=== PATIENT | male | born 1960 | race Caucasian/White ===

== ENCOUNTER 2018-06-03 09:36 | Inpatient (IN) | payer OTHER ==
[2018-06-03] VITALS (11 sets, daily range): BP systolic 172–230; BP diastolic 103–136
[~2018-06-03] VITALS: Ht 182.9 cm; Wt 132.1 kg
[2018-06-03] MEDS ORDERED: SODIUM CHLORIDE FLUSH 10ML SYR IVF ONE (10:00)
[2018-06-03] MEDS ORDERED: ASPIRIN 81 MG TABLET CHEW PO ONE (10:00)
[2018-06-03] MEDS ORDERED: ASPIRIN 81 MG TABLET CHEW ONE (10:00)
[2018-06-03] MEDS ORDERED: LABETALOL 5MG/ML, 20ML IVPush ONE (10:00)
[2018-06-03] MEDS ORDERED: LABETALOL 5MG/ML, 20ML ONE (10:38)
[2018-06-03 10:42] LABS: BASOPHILS # (AUTO) 0.03 x10^3/uL (0-0.1); BASOPHILS % (AUTO) 1 % (0-1); EOSINOPHILS # (AUTO) 0.15 x10^3/uL (0-0.4); EOSINOPHILS % (AUTO) 3 % (1-7); LYMPHOCYTES # (AUTO) 1.05 x10^3/uL (1-3.4); LYMPHOCYTES % (AUTO) 18 % (22-44); MD NO; MEAN CORPUSCULAR HEMOGLOBIN 33.4 pg (27.5-34.5); MEAN CORPUSCULAR HGB CONC 34.1 g/dL (33.2-36.2); MEAN CORPUSCULAR VOLUME 98.1 fL (81-97); MEAN PLATELET VOLUME 8.1 fL (7.4-10.4); MONOCYTES # (AUTO) 0.56 x10^3/uL (0.2-0.8); MONOCYTES % (AUTO) 10 % (2-9); NEUTROPHILS # (AUTO) 4.06 x10^3/uL (1.8-6.8); NEUTROPHILS % (AUTO) 70 % (42-75); PLATELET COUNT 157 x10^3/uL (130-400); RED BLOOD COUNT 5.67 x10^6/uL (4.38-5.82); RED CELL DISTRIBUTION WIDTH 14.5 % (9.4-14.8)
[2018-06-03 10:51] LABS: ALBUMIN 3.9 g/dL (3.4-5.0); ANION GAP 8 mmol/L (5-15); CALCIUM 8.9 mg/dL (8.5-10.1); CHLORIDE 108 mmol/L (98-107); CREATININE 0.89 mg/dL (0.7-1.3)
[2018-06-03 10:55] LABS: TROPONIN I 0.035 ng/mL (0.000-0.045)
[2018-06-03] MEDS ORDERED: OMNIPAQUE 350 MG/ML, 150 ML BOTTLE ONE (12:20)
[2018-06-03] MEDS ORDERED: FLUT9.9S INH (13:26)
[2018-06-03] MEDS ORDERED: CLIN300C8 PO (13:26)
[2018-06-03] MEDS ORDERED: IRBE150T25 PO (13:27)
[2018-06-03] MEDS ORDERED: ENALAPRILAT 1.25 MG/ML, 2ML IV ONE (13:30)
[2018-06-03] MEDS ORDERED: ENALAPRILAT 1.25 MG/ML, 2ML ONE (13:31)
[2018-06-03] MEDS ORDERED: LABETALOL 5MG/ML, 20ML IVPush PRN (14:30)
[2018-06-03 14:43] LABS: INTERNATIONAL NORMALIZED RATIO 1.13 (0.93-1.1); PROTHROMBIN TIME 11.7 Seconds (9.6-11.5)
[2018-06-03 14:46] LABS: ALANINE AMINOTRANSFERASE 203 U/L (12-78); ALBUMIN 3.6 g/dL (3.4-5.0); ANION GAP 9 mmol/L (5-15); CALCIUM 8.6 mg/dL (8.5-10.1); CHLORIDE 107 mmol/L (98-107); CREATININE 0.84 mg/dL (0.7-1.3)
[2018-06-03 14:51] LABS: ALKALINE PHOSPHATASE 92 U/L (45-117); BILIRUBIN,TOTAL 0.9 mg/dL (0.2-1.0); TROPONIN I 0.039 ng/mL (0.000-0.045)
[2018-06-03 15:10] LABS: FREE T4 (FREE THYROXINE) 1.22 ng/dL (0.76-1.46); THYROID STIMULATING HORMONE 1.29 mIU/L (0.358-3.740)
[2018-06-03 15:23] LABS: HEMOGLOBIN A1C 7.2 % (4.2-6.3)
[2018-06-03] MEDS: CLINDAMYCIN 300 MG CAPSULE PO SCH ×2 (15:47→20:39)
[2018-06-03] MEDS: HEPARIN 5,000 UNITS/ML, 1ML SQ SCH ×2 (15:47→23:33)
[2018-06-03] MEDS: ENALAPRILAT 1.25 MG/ML, 2ML IVPush PRN ×2 (15:47→20:41)
[2018-06-03] MEDS: FUROSEMIDE 40 MG/4 ML IV SCH (16:49)
[2018-06-03 17:01] LABS: AMPHETAMINE SCREEN, URINE Negative (Negative); BARBITURATE SCREEN, URINE Negative (Negative); BENZODIAZEPINE SCREEN, URINE Negative (Negative); CANNABINOID SCREEN, URINE Negative (Negative)
[2018-06-03 17:12] LABS: COCAINE SCREEN, URINE Negative (Negative); METHADONE SCREEN, URINE Negative (Negative); OPIATE SCREEN, URINE Negative (Negative)
[2018-06-03] MEDS ORDERED: IRBESARTAN 150 MG TABLET PO ONE (17:30)
[2018-06-03] MEDS: LABETALOL 5MG/ML, 20ML IVPush PRN ×2 (18:43→23:33)
[2018-06-03] MEDS ORDERED: hydrALAzine 20 MG/ML, 1ML ONE (18:56)
[2018-06-03] MEDS: hydrALAzine 20 MG/ML, 1ML IV PRN (19:01)
[2018-06-03] MEDS: ATORVASTATIN 40 MG TABLET PO SCH (20:39)
[2018-06-03 21:43] LABS: TROPONIN I 0.033 ng/mL (0.000-0.045)
[2018-06-04] VITALS (9 sets, daily range): BP systolic 136–187; BP diastolic 77–117
[2018-06-04] MEDS: hydrALAzine 20 MG/ML, 1ML IV PRN ×2 (02:40→13:39)
[2018-06-04] MEDS: ENALAPRILAT 1.25 MG/ML, 2ML IVPush PRN (03:42)
[2018-06-04] MEDS: ACETAMINOPHEN 325 MG TABLET PO PRN ×4 (03:42→20:58)
[2018-06-04 05:55] LABS: BASOPHILS # (AUTO) 0.03 x10^3/uL (0-0.1); BASOPHILS % (AUTO) 1 % (0-1); EOSINOPHILS % (AUTO) 2 % (1-7); LYMPHOCYTES # (AUTO) 0.93 x10^3/uL (1-3.4); LYMPHOCYTES % (AUTO) 17 % (22-44); MD NO; MEAN CORPUSCULAR HEMOGLOBIN 34.2 pg (27.5-34.5); MEAN CORPUSCULAR HGB CONC 34.4 g/dL (33.2-36.2); MEAN CORPUSCULAR VOLUME 99.3 fL (81-97); MEAN PLATELET VOLUME 8.2 fL (7.4-10.4); MONOCYTES # (AUTO) 0.54 x10^3/uL (0.2-0.8); MONOCYTES % (AUTO) 10 % (2-9); NEUTROPHILS # (AUTO) 3.95 x10^3/uL (1.8-6.8); NEUTROPHILS % (AUTO) 71 % (42-75); PLATELET COUNT 142 x10^3/uL (130-400); RED CELL DISTRIBUTION WIDTH 14.5 % (9.4-14.8)
[2018-06-04 06:08] LABS: ALBUMIN 3.4 g/dL (3.4-5.0); ANION GAP 6 mmol/L (5-15); CALCIUM 9.1 mg/dL (8.5-10.1); CHLORIDE 105 mmol/L (98-107)
[2018-06-04 06:10] LABS: ALANINE AMINOTRANSFERASE 177 U/L (12-78); ALKALINE PHOSPHATASE 87 U/L (45-117); BILIRUBIN,TOTAL 0.9 mg/dL (0.2-1.0); CREATININE 0.93 mg/dL (0.7-1.3); TOTAL PROTEIN 7.1 g/dL (6.4-8.2)
[2018-06-04] MEDS: LABETALOL 5MG/ML, 20ML IVPush PRN (06:24)
[2018-06-04] MEDS: INSULIN LISPRO 100 UNITS/ML, PEN SQ-INSULIN SCH ×4 (08:00→20:22)
[2018-06-04] MEDS: AMLODIPINE 5 MG TABLET PO SCH (08:08)
[2018-06-04] MEDS: IRBESARTAN 150 MG TABLET PO SCH (08:08)
[2018-06-04] MEDS: CLINDAMYCIN 300 MG CAPSULE PO SCH ×3 (08:08→20:21)
[2018-06-04] MEDS: HEPARIN 5,000 UNITS/ML, 1ML SQ SCH ×2 (08:09→16:40)
[2018-06-04] MEDS: FUROSEMIDE 40 MG/4 ML IV SCH ×2 (08:09→17:30)
[2018-06-04] MEDS ORDERED: CALCIUM CARBONATE 500 MG TAB.CHEW PO PRN (11:30)
[2018-06-04] MEDS ORDERED: IBUPROFEN 200 MG TABLET PO PRN (13:30)
[2018-06-04] MEDS ORDERED: LORazepam 0.5MG TABLET PO ONE (14:00)
[2018-06-04] MEDS ORDERED: GADOBUTROL 10 MMOL/10 ML PFS ONE (15:50)
[2018-06-04] MEDS: ATORVASTATIN 40 MG TABLET PO SCH (20:21)
[2018-06-05] MEDS: HEPARIN 5,000 UNITS/ML, 1ML SQ SCH ×4 (00:28→23:56)
[2018-06-05 00:35] VITALS: BP 133/80
[2018-06-05 07:46] VITALS: BP 181/98
[2018-06-05 08:07] VITALS: BP 170/100
[2018-06-05] MEDS: AMLODIPINE 5 MG TABLET PO SCH (08:22)
[2018-06-05] MEDS: CLINDAMYCIN 300 MG CAPSULE PO SCH ×3 (08:22→20:54)
[2018-06-05] MEDS: INSULIN LISPRO 100 UNITS/ML, PEN SQ-INSULIN SCH ×4 (08:23→20:55)
[2018-06-05] MEDS: IRBESARTAN 150 MG TABLET PO SCH (08:23)
[2018-06-05] MEDS: ASPIRIN 81 MG TABLET CHEW PO SCH (08:23)
[2018-06-05] MEDS: HYDROCHLOROTHIAZIDE 25 MG TABLET PO SCH ×2 (08:23→20:54)
[2018-06-05 09:35] VITALS: BP 138/76
[2018-06-05] MEDS ORDERED: OMNIPAQUE 350 MG/ML, 150 ML BOTTLE ONE (09:54)
[2018-06-05 13:27] VITALS: BP 136/76
[2018-06-05 20:14] VITALS: BP 115/69
[2018-06-05] MEDS: ATORVASTATIN 40 MG TABLET PO SCH (20:54)
[2018-06-06 02:30] VITALS: BP 153/79
[2018-06-06 04:57] LABS: BASOPHILS # (AUTO) 0.02 x10^3/uL (0-0.1); BASOPHILS % (AUTO) 0 % (0-1); EOSINOPHILS # (AUTO) 0.06 x10^3/uL (0-0.4); EOSINOPHILS % (AUTO) 1 % (1-7); LYMPHOCYTES # (AUTO) 0.96 x10^3/uL (1-3.4); LYMPHOCYTES % (AUTO) 15 % (22-44); MD NO; MEAN CORPUSCULAR HEMOGLOBIN 33.8 pg (27.5-34.5); MEAN CORPUSCULAR HGB CONC 33.9 g/dL (33.2-36.2); MEAN CORPUSCULAR VOLUME 99.8 fL (81-97); MEAN PLATELET VOLUME 7.9 fL (7.4-10.4); MONOCYTES # (AUTO) 0.68 x10^3/uL (0.2-0.8); MONOCYTES % (AUTO) 10 % (2-9); NEUTROPHILS % (AUTO) 74 % (42-75); PLATELET COUNT 172 x10^3/uL (130-400); RED BLOOD COUNT 5.65 x10^6/uL (4.38-5.82); RED CELL DISTRIBUTION WIDTH 14.8 % (9.4-14.8)
[2018-06-06 05:06] LABS: ALANINE AMINOTRANSFERASE 90 U/L (12-78); ALBUMIN 3.5 g/dL (3.4-5.0); ANION GAP 11 mmol/L (5-15); CALCIUM 9.5 mg/dL (8.5-10.1); CHLORIDE 105 mmol/L (98-107); CREATININE 0.95 mg/dL (0.7-1.3)
[2018-06-06 05:08] LABS: ALKALINE PHOSPHATASE 80 U/L (45-117); BILIRUBIN,TOTAL 0.9 mg/dL (0.2-1.0); TOTAL PROTEIN 7.1 g/dL (6.4-8.2)
[2018-06-06 07:10] VITALS: BP 160/91
[2018-06-06 08:29] VITALS: BP 154/89
[2018-06-06] MEDS: CLINDAMYCIN 300 MG CAPSULE PO SCH (08:31)
[2018-06-06] MEDS: AMLODIPINE 5 MG TABLET PO SCH (08:31)
[2018-06-06] MEDS: HYDROCHLOROTHIAZIDE 25 MG TABLET PO SCH (08:31)
[2018-06-06] MEDS: HEPARIN 5,000 UNITS/ML, 1ML SQ SCH (08:32)
[2018-06-06] MEDS: ASPIRIN 81 MG TABLET CHEW PO SCH (08:32)
[2018-06-06] MEDS: IRBESARTAN 150 MG TABLET PO SCH (08:32)
[2018-06-06] MEDS: INSULIN LISPRO 100 UNITS/ML, PEN SQ-INSULIN SCH (08:33)
[2018-06-06] MEDS ORDERED: HYDR25TA6 PO (09:54)
[2018-06-06] MEDS ORDERED: HYDR-3343 PO (09:54)
[2018-06-06] MEDS ORDERED: AMLO5TAB7 PO (09:54)
[2018-06-06] MEDS ORDERED: ACET325T14 PO (09:54)
[2018-06-06] MEDS ORDERED: METF500T PO (09:54)
[2018-06-06] MEDS ORDERED: ASPI-515 PO (09:54)
[2018-06-06] MEDS ORDERED: POTASSIUM CHLORIDE 20 MEQ TAB.ER.PRT PO ONE (10:00)
== END 2018-06-06 11:42 | disposition home or self-care (01) | DRG 305 ==
LOC: ED 13:34 → EDIP 14:04 → 4WST 15:28 → DCLOUNGE 06-06 11:15
PROVIDERS: ADMIT Internal Medicine; ATTEND Internal Medicine
DX: I16.1 Hypertensive emergency (principal); J98.11 Atelectasis; D75.1 Secondary polycythemia; E11.65 Type 2 diabetes mellitus with hyperglycemia; K76.0 Fatty (change of) liver, not elsewhere classified; N20.0 Calculus of kidney; N28.1 Cyst of kidney, acquired; F17.290 Nicotine dependence, other tobacco product, uncomplicated; I11.9 Hypertensive heart disease without heart failure; N40.0 Benign prostatic hyperplasia without lower urinary tract symptoms; R09.02 Hypoxemia; Z82.49 Family history of ischemic heart disease and other diseases of the circulatory system; Z79.84 Long term (current) use of oral hypoglycemic drugs; Z79.899 Other long term (current) drug therapy
CPT/HCPCS: 36415; 70450; 70553; 71046; 71275; 74178; 76700; 80048; 80053; 80307; 82040; 82533; 82668; 82962; 83036; 83880; 84153; 84439; 84443; 84484; 85025; 85610; 85730; 93005; 93306; 93975; 96374; 96375; 99285; A9585; G0378; J1644; J1940; Q9967; G0103; J0360; J1815

== ENCOUNTER 2018-06-14 08:48 | Emergency (ER) | payer OTHER ==
[~2018-06-14] VITALS: Ht 182.9 cm; Wt 117.7 kg
[~2018-06-14 08:48] MED LIST: ACET325T14 PO; AMLO5TAB7 PO; ASPI-515 PO; CLIN300C8 PO; FLUT9.9S INH; HYDR-3343 PO; HYDR25TA6 PO; IRBE150T25 PO; METF500T PO
[2018-06-14] MEDS ORDERED: SODIUM CHLORIDE 0.9% 1,000ML IVBOLUS ONE (09:30)
[2018-06-14] MEDS ORDERED: ONDANSETRON ODT 4 MG ONE (10:07)
[2018-06-14 10:15] LABS: BASOPHILS # (AUTO) 0.02 x10^3/uL (0-0.1); BASOPHILS % (AUTO) 0 % (0-1); EOSINOPHILS # (AUTO) 0.05 x10^3/uL (0-0.4); EOSINOPHILS % (AUTO) 0 % (1-7); LYMPHOCYTES # (AUTO) 0.55 x10^3/uL (1-3.4); LYMPHOCYTES % (AUTO) 5 % (22-44); MD NO; MEAN CORPUSCULAR HEMOGLOBIN 33.1 pg (27.5-34.5); MEAN CORPUSCULAR HGB CONC 33.4 g/dL (33.2-36.2); MEAN PLATELET VOLUME 8.7 fL (7.4-10.4); MONOCYTES % (AUTO) 8 % (2-9); NEUTROPHILS # (AUTO) 9.47 x10^3/uL (1.8-6.8); NEUTROPHILS % (AUTO) 86 % (42-75); PLATELET COUNT 204 x10^3/uL (130-400); RED CELL DISTRIBUTION WIDTH 13.3 % (9.4-14.8)
[2018-06-14 10:26] LABS: ALANINE AMINOTRANSFERASE 65 U/L (12-78); ALBUMIN 3.6 g/dL (3.4-5.0); ANION GAP 11 mmol/L (5-15); CALCIUM 8.7 mg/dL (8.5-10.1); CHLORIDE 102 mmol/L (98-107); CREATININE 0.96 mg/dL (0.7-1.3)
[2018-06-14 10:30] LABS: ALKALINE PHOSPHATASE 99 U/L (45-117); BILIRUBIN,TOTAL 0.8 mg/dL (0.2-1.0); TOTAL PROTEIN 7.4 g/dL (6.4-8.2); TROPONIN I < 0.015 ng/mL (0.000-0.045)
[2018-06-14] MEDS ORDERED: ONDANSETRON ODT 4 MG PO ONE (10:30)
[2018-06-14 11:59] VITALS: BP 113/64
== END 2018-06-14 12:20 | disposition home or self-care (01) ==
LOC: ED 10:11
DX: R55 Syncope and collapse (principal); I10 Essential (primary) hypertension
CPT/HCPCS: 36415; 71045; 80053; 84484; 85025; 93005; 96360; 99285; J7030; Q0162